=== PATIENT | male | born 1975 | race African-American/Black ===

== ENCOUNTER 2020-12-03 13:31 | Inpatient (IN) | payer BC ==
[~2020-12-03] VITALS: Ht 188 cm; Wt 145.1 kg
[2020-12-03] MEDS ORDERED: ONDANSETRON HCL INJ 2MG/ML 2ML 2 MG/ML VIAL IV ONE (13:55)
[2020-12-03] MEDS ORDERED: FENTANYL CITRATE/PF 100MCG/2 ML INJ IV ONE ×2 (14:00→15:30)
[2020-12-03 14:05] LABS: BASOPHILS % 0.2 % (0.0-1.0); EOSINOPHILS # (AUTO) 0.1 (0.0-0.4); EOSINOPHILS % 0.9 % (0.0-6.0); HEMATOCRIT 32.7 % (38.2-49.6); HEMOGLOBIN 10.5 g/dL (14.0-18.0); LYMPHOCYTES # (AUTO) 1.4 (1.0-3.2); LYMPHOCYTES % 9.5 % (18.0-39.1); MEAN CORPUSCULAR HEMOGLOBIN 30.8 pg (28-32); MEAN CORPUSCULAR HGB CONC 32.1 g/dL (31-35); MEAN CORPUSCULAR VOLUME 95.9 fL (81-99); MONOCYTES # (AUTO) 0.5 (0.2-0.8); MONOCYTES % 3.1 % (4.4-11.3); NEUTROPHILS % 85.4 % (38.7-80.0); PLATELET COUNT 380 x10e3/uL (140-360); RED BLOOD COUNT 3.41 x10e6/uL (4.3-5.7); RED CELL DISTRIBUTION WIDTH 19.9 % (11.7-14.4)
[2020-12-03] MEDS ORDERED: FENTANYL CITRATE/PF 100MCG/2 ML INJ ONE (14:05)
[2020-12-03] MEDS ORDERED: ONDANSETRON HCL INJ 2MG/ML 2ML 2 MG/ML VIAL ONE (14:05)
[2020-12-03 15:57] LABS: ALBUMIN 3.7 g/dL (3.5-5.0); ANION GAP 29.3 mmol/L (8-16); CALCIUM 9.7 mg/dL (8.4-10.2); CREATININE, SERUM 31.18 mg/dL (0.72-1.25); POTASSIUM 4.3 mmol/L (3.5-5.1)
[2020-12-03] MEDS ORDERED: VANCOMYCIN 1GM/NS 250 ML 250 ML IV ONE (17:30)
[2020-12-03] MEDS ORDERED: PIPERACILLIN/TAZO 2.25 GM 50 ML IV ONE (17:30)
[2020-12-03] MEDS ORDERED: PIPERACILLIN/TAZOBACTAM 2.25 GM in SODIUM CHLORIDE 0.9% 50ML 50 ML IV ONE (17:45)
[2020-12-03] MEDS ORDERED: MORPHINE SULFATE INJ 4 MG/ML INJ 1ML IV PRN (17:45)
[2020-12-03] MEDS ORDERED: PIPERACILLIN/TAZOBAC 2.25 GM/SOD CHL 50 ML BAG IV SCH (17:45)
[2020-12-03] MEDS ORDERED: SODIUM CHLORIDE 0.9% 1000ML 1,000 ML IV ONE (17:45)
[2020-12-03] MEDS ORDERED: GENTAMICIN 120MG/NS 100ML 100 ML IV ONE (18:00)
[2020-12-03 18:05] LABS: CREATINE KINASE MB 3.3 ng/mL (0-5.0)
[2020-12-03] MEDS ORDERED: SODIUM CHLORIDE 0.9% 50ML 50 ML ONE (18:28)
[2020-12-03] MEDS ORDERED: IOPAMIDOL 370 MG/ML 200 ML INFUS..BTL INJ ONE (18:28)
[2020-12-03] MEDS ORDERED: SODIUM CHLORIDE 0.9% 500ML 500 ML IV ONE (18:45)
[2020-12-03 20:44] LABS: CLARITY,URINE TURBID (CLEAR); COLOR,URINE YELLOW (YELLOW); LEUKOCYTE ESTERASE ,URINE MODERATE (NEGATIVE); NITRITE,URINE NEGATIVE (NEGATIVE); PROTEIN,URINE DIPSTICK >=300 (NEGATIVE)
[2020-12-03 20:45] LABS: KETONES,URINE NEGATIVE (NEGATIVE); URINE UROBILINOGEN 0.2 mg/dL (0.2 - 1)
[2020-12-03] MEDS: HYDROMORPHONE 1MG/1ML INJ IV PRN (20:45)
[2020-12-03 20:50] LABS: WBC,URINE (MAN) >50 /HPF (0-5)
[2020-12-03 20:51] LABS: BACTERIA,URINE FEW /HPF
[2020-12-03] MEDS ORDERED: GENTAMICIN 120MG/NS 100ML 100 ML ONE (21:12)
[2020-12-03 21:30] VITALS: BP 139/61
[2020-12-03] MEDS ORDERED: HEPARIN SOD (PORCINE) 1000 UNIT/ML SDV ONE (21:44)
[2020-12-03] MEDS ORDERED: ACETAMINOPHEN 325 MG TAB PO ONE (22:00)
[2020-12-03 22:45] VITALS: BP 147/61
[2020-12-03] MEDS ORDERED: [UNRECOGNIZED DRUG - OTHER] PO (23:15)
[2020-12-03] MEDS ORDERED: PHOSPHORUS PO (23:15)
[2020-12-03] MEDS ORDERED: STOOL SOFTENER50 MG PO (23:15)
[2020-12-03] MEDS ORDERED: FUROSEMIDE40 MG/4 ML PO (23:15)
[2020-12-03] MEDS ORDERED: PRILOSEC OTC20 MG PO (23:15)
[2020-12-04] MEDS ORDERED: IBUPROFEN 600 MG TAB PO STA (00:04)
[2020-12-04] MEDS: HYDROMORPHONE 1MG/1ML INJ IV PRN ×4 (00:08→20:17)
[2020-12-04 00:30] VITALS: BP 159/69
[2020-12-04 01:05] LABS: % IRON SATURATION 2 % (15-50); IRON 6 ug/dL (65-175); TOTAL IRON BINDING CAPACITY 294 ug/dL (261-478); TRANSFERRIN 210 mg/dL (174-364)
[2020-12-04 01:12] LABS: CREATINE KINASE MB 1.9 ng/mL (0-5.0)
[2020-12-04 04:30] VITALS: BP 168/65
[2020-12-04 04:44] LABS: BASOPHILS % 0.2 % (0.0-1.0); EOSINOPHILS % 0.2 % (0.0-6.0); HEMOGLOBIN 9.7 g/dL (14.0-18.0); LYMPHOCYTES # (AUTO) 0.6 (1.0-3.2); LYMPHOCYTES % 3.2 % (18.0-39.1); MEAN CORPUSCULAR HEMOGLOBIN 30.5 pg (28-32); MEAN CORPUSCULAR HGB CONC 32.3 g/dL (31-35); MEAN CORPUSCULAR VOLUME 94.3 fL (81-99); MONOCYTES # (AUTO) 0.5 (0.2-0.8); MONOCYTES % 2.5 % (4.4-11.3); NEUTROPHILS # (AUTO) 18.5 (2.1-6.9); NEUTROPHILS % 92.5 % (38.7-80.0); PLATELET COUNT 294 x10e3/uL (140-360); RED BLOOD COUNT 3.18 x10e6/uL (4.3-5.7)
[2020-12-04 05:07] LABS: ALBUMIN 2.9 g/dL (3.5-5.0); ALBUMIN/GLOBULIN RATIO 0.9 (0.8-2.0); ANION GAP 26.8 mmol/L (8-16); CALCIUM 9.1 mg/dL (8.4-10.2); CREATININE, SERUM 30.71 mg/dL (0.72-1.25)
[2020-12-04] MEDS: PIPERACILLIN/TAZOBACTAM 2.25 GM in SODIUM CHLORIDE 0.9% 50ML 50 ML IV SCH ×2 (05:18→20:00)
[2020-12-04 05:28] LABS: POTASSIUM 5.8 mmol/L (3.5-5.1)
[2020-12-04 06:32] LABS: CREATINE KINASE MB 1.5 ng/mL (0-5.0)
[2020-12-04] MEDS ORDERED: LIDOCAINE HCL 1% LOCAL INJ 20 ML VIAL ONE (11:21)
[2020-12-04] MEDS ORDERED: HEPARIN SOD (PORCINE) 1000 UNIT/ML SDV ONE (11:37)
[2020-12-04] MEDS ORDERED: SODIUM CHLORIDE 0.9% 1000ML 1,000 ML IV ONE ×2 (13:45→14:45)
[2020-12-04] MEDS ORDERED: HEPARIN SOD (PORCINE) 5,000 UNIT/ML VIAL IV NR (13:45)
[2020-12-04] MEDS ORDERED: MANNITOL 25% 12.5GM/50 ML VIAL IV NR ×2 (14:00→15:00)
[2020-12-04] MEDS: ONDANSETRON HCL INJ 2MG/ML 2ML 2 MG/ML VIAL IV PRN ×2 (14:15→20:18)
[2020-12-04] MEDS ORDERED: GENTAMICIN 120MG/NS 100ML 100 ML IV ONE (14:45)
[2020-12-04 16:45] LABS: BODY FLUID TYPE PERITONEAL
[2020-12-04 16:46] LABS: BODY FLUID APPEARANCE TURBID; BODY FLUID COLOR YELLOW; WBC,BODY FLUID 82556 cells/uL
[2020-12-04 16:47] LABS: RBC,BODY FLUID 7500 cells/uL
[2020-12-04 18:07] VITALS: BP 139/90
[2020-12-04 18:30] LABS: LYMPHOCYTES,BODY FLUID 2 %; MONO/MACROPHG,BODY FLUID 1 %; NEUTROPHILS,BODY FLUID 97 %
[2020-12-04 19:58] VITALS: BP 135/88
[2020-12-04] MEDS ORDERED: SODIUM CHLORIDE 0.9% 50ML 50 ML ONE (20:38)
[2020-12-04 21:00] VITALS: BP 135/88
[2020-12-04 23:41] VITALS: BP 137/75
[2020-12-05] VITALS (8 sets, daily range): BP systolic 107–171; BP diastolic 66–100
[2020-12-05] MEDS: ACETAMINOPHEN 325 MG TAB PO PRN ×3 (00:13→20:09)
[2020-12-05] MEDS: HYDROMORPHONE 1MG/1ML INJ IV PRN ×4 (01:14→23:00)
[2020-12-05] MEDS: ONDANSETRON HCL INJ 2MG/ML 2ML 2 MG/ML VIAL IV PRN ×2 (01:14→23:00)
[2020-12-05] MEDS ORDERED: LORAZEPAM 0.5 MG TAB PO PRN (01:45)
[2020-12-05] MEDS: PIPERACILLIN/TAZOBACTAM 2.25 GM in SODIUM CHLORIDE 0.9% 50ML 50 ML IV SCH (05:00)
[2020-12-05 05:38] LABS: BASOPHILS % 0.2 % (0.0-1.0); EOSINOPHILS # (AUTO) 0.3 (0.0-0.4); EOSINOPHILS % 1.5 % (0.0-6.0); HEMATOCRIT 28.5 % (38.2-49.6); LYMPHOCYTES # (AUTO) 0.8 (1.0-3.2); LYMPHOCYTES % 4.2 % (18.0-39.1); MEAN CORPUSCULAR HEMOGLOBIN 30.2 pg (28-32); MEAN CORPUSCULAR HGB CONC 31.6 g/dL (31-35); MEAN CORPUSCULAR VOLUME 95.6 fL (81-99); MONOCYTES # (AUTO) 0.4 (0.2-0.8); MONOCYTES % 2.3 % (4.4-11.3); NEUTROPHILS # (AUTO) 16.8 (2.1-6.9); NEUTROPHILS % 90.9 % (38.7-80.0); PLATELET COUNT 237 x10e3/uL (140-360); RED BLOOD COUNT 2.98 x10e6/uL (4.3-5.7); RED CELL DISTRIBUTION WIDTH 19.9 % (11.7-14.4)
[2020-12-05 06:03] LABS: ALBUMIN 2.5 g/dL (3.5-5.0); ALBUMIN/GLOBULIN RATIO 0.7 (0.8-2.0); ANION GAP 24.2 mmol/L (8-16); CALCIUM 9.2 mg/dL (8.4-10.2); CREATININE, SERUM 25.03 mg/dL (0.72-1.25); POTASSIUM 5.2 mmol/L (3.5-5.1)
[2020-12-05] MEDS: PANTOPRAZOLE SOD 40 MG TABEC PO SCH ×2 (08:35→16:38)
[2020-12-05] MEDS: AMLODIPINE BESYLATE 10 MG TAB PO SCH (08:37)
[2020-12-05] MEDS ORDERED: SODIUM CHLORIDE 0.9% 1000ML 2,000 ML ONE (09:31)
[2020-12-05] MEDS ORDERED: IRON SUCROSE 100 MG in SODIUM CHLORIDE 0.9% 100 ML 100 ML IV SCH (10:00)
[2020-12-05] MEDS ORDERED: VANCOMYCIN 1GM/NS 250 ML 250 ML IV ONE (11:30)
[2020-12-05] MEDS ORDERED: VANCOMYCIN 1GM/NS 250 ML 250 ML IV SCH (15:00)
[2020-12-05] MEDS: HYDRALAZINE HCL 25 MG TAB PO SCH ×2 (16:37→20:08)
[2020-12-06] VITALS (7 sets, daily range): BP systolic 96–167; BP diastolic 55–103
[2020-12-06 05:10] LABS: BASOPHILS # (AUTO) 0.1 (0.0-0.1); BASOPHILS % 0.3 % (0.0-1.0); EOSINOPHILS # (AUTO) 0.3 (0.0-0.4); EOSINOPHILS % 1.6 % (0.0-6.0); HEMATOCRIT 30.8 % (38.2-49.6); HEMOGLOBIN 9.7 g/dL (14.0-18.0); LYMPHOCYTES # (AUTO) 0.8 (1.0-3.2); LYMPHOCYTES % 3.9 % (18.0-39.1); MEAN CORPUSCULAR HEMOGLOBIN 29.8 pg (28-32); MEAN CORPUSCULAR HGB CONC 31.5 g/dL (31-35); MEAN CORPUSCULAR VOLUME 94.5 fL (81-99); MONOCYTES # (AUTO) 0.6 (0.2-0.8); MONOCYTES % 2.9 % (4.4-11.3); NEUTROPHILS # (AUTO) 17.2 (2.1-6.9); NEUTROPHILS % 90.1 % (38.7-80.0); PLATELET COUNT 240 x10e3/uL (140-360); RED BLOOD COUNT 3.26 x10e6/uL (4.3-5.7); RED CELL DISTRIBUTION WIDTH 19.2 % (11.7-14.4)
[2020-12-06 05:44] LABS: ALBUMIN 2.4 g/dL (3.5-5.0); ALBUMIN/GLOBULIN RATIO 0.5 (0.8-2.0); ANION GAP 21.7 mmol/L (8-16); CALCIUM 10.1 mg/dL (8.4-10.2); CREATININE, SERUM 19.03 mg/dL (0.72-1.25); POTASSIUM 4.7 mmol/L (3.5-5.1)
[2020-12-06] MEDS: PANTOPRAZOLE SOD 40 MG TABEC PO SCH ×2 (08:00→16:33)
[2020-12-06] MEDS ORDERED: SUCRALFATE 1 GM TAB PO SCH (09:00)
[2020-12-06] MEDS: HYDRALAZINE HCL 25 MG TAB PO SCH ×3 (09:00→20:15)
[2020-12-06] MEDS: AMLODIPINE BESYLATE 10 MG TAB PO SCH (09:00)
[2020-12-06] MEDS: SUCRALFATE 1 GM/10 ML SUSP PO SCH ×2 (09:40→17:00)
[2020-12-06] MEDS: HYDROMORPHONE 1MG/1ML INJ IV PRN ×2 (10:20→23:14)
[2020-12-06] MEDS: ONDANSETRON HCL INJ 2MG/ML 2ML 2 MG/ML VIAL IV PRN ×2 (10:20→23:15)
[2020-12-06] MEDS: CEFAZOLIN SOD 1 GM/NS 50ML 50 ML IV SCH (15:30)
[2020-12-07] VITALS (9 sets, daily range): BP systolic 104–128; BP diastolic 56–91
[2020-12-07] MEDS ORDERED: BISACODYL 5 MG TAB EC PO ONE ×2 (01:15→22:50)
[2020-12-07 06:03] LABS: BASOPHILS # (AUTO) 0.1 (0.0-0.1); BASOPHILS % 0.4 % (0.0-1.0); EOSINOPHILS # (AUTO) 0.6 (0.0-0.4); EOSINOPHILS % 4.4 % (0.0-6.0); HEMATOCRIT 27.8 % (38.2-49.6); HEMOGLOBIN 8.8 g/dL (14.0-18.0); LYMPHOCYTES % 7.1 % (18.0-39.1); MEAN CORPUSCULAR HEMOGLOBIN 30.3 pg (28-32); MEAN CORPUSCULAR HGB CONC 31.7 g/dL (31-35); MEAN CORPUSCULAR VOLUME 95.9 fL (81-99); MONOCYTES # (AUTO) 0.9 (0.2-0.8); MONOCYTES % 6.2 % (4.4-11.3); NEUTROPHILS # (AUTO) 11.4 (2.1-6.9); PLATELET COUNT 228 x10e3/uL (140-360)
[2020-12-07 06:23] LABS: ALBUMIN 2.4 g/dL (3.5-5.0); ALBUMIN/GLOBULIN RATIO 0.5 (0.8-2.0); ANION GAP 18.4 mmol/L (8-16); CALCIUM 9.7 mg/dL (8.4-10.2); CREATININE, SERUM 13.6 mg/dL (0.72-1.25); POTASSIUM 4.4 mmol/L (3.5-5.1)
[2020-12-07] MEDS: PANTOPRAZOLE SOD 40 MG TABEC PO SCH ×2 (07:30→16:33)
[2020-12-07] MEDS ORDERED: SODIUM CHLORIDE 0.9% 1000ML 2,000 ML ONE (08:53)
[2020-12-07] MEDS: AMLODIPINE BESYLATE 10 MG TAB PO SCH (09:00)
[2020-12-07] MEDS: SUCRALFATE 1 GM/10 ML SUSP PO SCH ×2 (09:00→17:17)
[2020-12-07] MEDS: HYDRALAZINE HCL 25 MG TAB PO SCH ×3 (09:00→21:00)
[2020-12-07] MEDS: HYDROMORPHONE 1MG/1ML INJ IV PRN (09:00)
[2020-12-07] MEDS ORDERED: HEPARIN SOD (PORCINE) 1000 UNIT/ML SDV IV PRN (14:15)
[2020-12-07] MEDS ORDERED: SODIUM CHLORIDE 0.9% 1000ML 2,000 ML IV PRN (14:15)
[2020-12-07] MEDS: ONDANSETRON HCL INJ 2MG/ML 2ML 2 MG/ML VIAL IV PRN (19:38)
[2020-12-07] MEDS: BISACODYL 5 MG TAB EC PO PRN (19:40)
[2020-12-07] MEDS: ACETAMINOPHEN 325 MG TAB PO PRN (19:40)
[2020-12-07] MEDS ORDERED: BISACODYL 5 MG TAB EC PO STA (21:46)
[2020-12-08] VITALS (18 sets, daily range): BP systolic 85–114; BP diastolic 47–92
[2020-12-08] MEDS: ONDANSETRON HCL INJ 2MG/ML 2ML 2 MG/ML VIAL IV PRN ×3 (00:14→12:38)
[2020-12-08] MEDS: ACETAMINOPHEN 325 MG TAB PO PRN (04:54)
[2020-12-08] MEDS: PANTOPRAZOLE SOD 40 MG TABEC PO SCH (07:30)
[2020-12-08] MEDS: SUCRALFATE 1 GM/10 ML SUSP PO SCH ×2 (09:00→16:35)
[2020-12-08] MEDS: AMLODIPINE BESYLATE 10 MG TAB PO SCH (09:00)
[2020-12-08] MEDS: HYDRALAZINE HCL 25 MG TAB PO SCH ×3 (09:00→21:00)
[2020-12-08] MEDS: SODIUM CHLORIDE 0.9% 250ML IRRIG IR SCH ×4 (09:15→21:37)
[2020-12-08] MEDS ORDERED: SODIUM CHLORIDE 0.9% 500ML 500 ML IV ONE (11:00)
[2020-12-08] MEDS ORDERED: HYDROMORPHONE 1MG/1ML INJ IV PRN (11:15)
[2020-12-08 11:51] LABS: BASOPHILS % 0.6 % (0.0-1.0); EOSINOPHILS # (AUTO) 0.2 (0.0-0.4); EOSINOPHILS % 3.6 % (0.0-6.0); HEMOGLOBIN 10.4 g/dL (14.0-18.0); LYMPHOCYTES # (AUTO) 0.8 (1.0-3.2); MEAN CORPUSCULAR HEMOGLOBIN 29.6 pg (28-32); MEAN CORPUSCULAR HGB CONC 31.5 g/dL (31-35); MONOCYTES # (AUTO) 0.8 (0.2-0.8); NEUTROPHILS # (AUTO) 4.7 (2.1-6.9); NEUTROPHILS % 70.7 % (38.7-80.0); PLATELET COUNT 261 x10e3/uL (140-360); RED BLOOD COUNT 3.51 x10e6/uL (4.3-5.7); RED CELL DISTRIBUTION WIDTH 19.2 % (11.7-14.4)
[2020-12-08 12:19] LABS: ALBUMIN 2.7 g/dL (3.5-5.0); ALBUMIN/GLOBULIN RATIO 0.5 (0.8-2.0); ANION GAP 25.5 mmol/L (8-16); CALCIUM 10.4 mg/dL (8.4-10.2); CREATININE, SERUM 12.53 mg/dL (0.72-1.25); POTASSIUM 4.5 mmol/L (3.5-5.1)
[2020-12-08 12:28] LABS: AMYLASE 238 U/L (25-125); LIPASE 766 U/L (8-78)
[2020-12-08] MEDS: PANTOPRAZOLE 40 MG 10ML VIAL IV SCH (16:47)
[2020-12-09] VITALS (24 sets, daily range): BP systolic 80–112; BP diastolic 38–84
[2020-12-09] MEDS: SODIUM CHLORIDE 0.9% 250ML IRRIG IR SCH ×6 (01:15→21:15)
[2020-12-09] MEDS: ONDANSETRON HCL INJ 2MG/ML 2ML 2 MG/ML VIAL IV PRN ×2 (01:27→20:33)
[2020-12-09 05:38] LABS: BASOPHILS % 0.4 % (0.0-1.0); EOSINOPHILS # (AUTO) 0.2 (0.0-0.4); HEMATOCRIT 32.2 % (38.2-49.6); HEMOGLOBIN 10.1 g/dL (14.0-18.0); LYMPHOCYTES # (AUTO) 1.1 (1.0-3.2); LYMPHOCYTES % 11.5 % (18.0-39.1); MEAN CORPUSCULAR HEMOGLOBIN 29.7 pg (28-32); MEAN CORPUSCULAR HGB CONC 31.4 g/dL (31-35); MEAN CORPUSCULAR VOLUME 94.7 fL (81-99); MONOCYTES # (AUTO) 0.8 (0.2-0.8); MONOCYTES % 8.5 % (4.4-11.3); NEUTROPHILS # (AUTO) 7.2 (2.1-6.9); NEUTROPHILS % 75.9 % (38.7-80.0); PLATELET COUNT 299 x10e3/uL (140-360); RED CELL DISTRIBUTION WIDTH 19.6 % (11.7-14.4)
[2020-12-09 05:56] LABS: ALBUMIN 2.6 g/dL (3.5-5.0); ALBUMIN/GLOBULIN RATIO 0.4 (0.8-2.0); ANION GAP 29.7 mmol/L (8-16); CREATININE, SERUM 15.48 mg/dL (0.72-1.25); POTASSIUM 5.7 mmol/L (3.5-5.1)
[2020-12-09 08:35] LABS: BAND NEUTROPHILS % (MANUAL) 12 %; EOSINOPHILS % (MANUAL) 4 % (0-7); LYMPHOCYTES % (MANUAL) 15 % (19-48); MONOCYTES % (MANUAL) 14 % (3.4-9.0); NEUTROPHILS % (MANUAL) 55 % (40-74)
[2020-12-09 08:36] LABS: PLATELET ESTIMATE ADEQUATE
[2020-12-09 08:37] LABS: ANISOCYTOSIS MODERATE; POLYCHROMASIA FEW
[2020-12-09 08:38] LABS: MICROCYTOSIS SLIGHT
[2020-12-09 08:39] LABS: LARGE PLATELETS FEW; PLATELET MORPHOLOGY COMMENT RARE EDTA CLUMPING; RBC MORPHOLOGY COMMENT ABNORMAL
[2020-12-09] MEDS: SUCRALFATE 1 GM/10 ML SUSP PO SCH ×2 (08:41→16:54)
[2020-12-09] MEDS: AMLODIPINE BESYLATE 10 MG TAB PO SCH (08:41)
[2020-12-09] MEDS: HYDRALAZINE HCL 25 MG TAB PO SCH ×3 (08:41→21:00)
[2020-12-09] MEDS: PANTOPRAZOLE 40 MG 10ML VIAL IV SCH ×2 (08:41→16:54)
[2020-12-09] MEDS ORDERED: SODIUM CHLORIDE 0.9% 500ML 500 ML ONE ×2 (13:06→14:07)
[2020-12-09] MEDS: CEFAZOLIN SOD 1 GM/NS 50ML 50 ML IV SCH (13:15)
[2020-12-09] MEDS ORDERED: BUPIVACAINE 0.25% 30ML SDV ONE (14:17)
[2020-12-09] MEDS ORDERED: SODIUM CHLORIDE 0.9% 250ML IRRIG IR SCH (14:30)
[2020-12-09] MEDS ORDERED: HYDROMORPHONE 1MG/1ML INJ IV PRN (14:30)
[2020-12-09] MEDS ORDERED: PANTOPRAZOLE 40 MG 10ML VIAL IV SCH (15:00)
[2020-12-09] MEDS ORDERED: ALBUMIN 5% 0.05 GM/ML BTL IV STA (15:41)
[2020-12-09] MEDS: PIPERACILLIN/TAZOBAC 3.375 GM in SODIUM CHLORIDE 0.9% 50ML 50 ML IV SCH ×2 (15:49→20:33)
[2020-12-09] MEDS ORDERED: FENTANYL CITRATE/PF 100MCG/2 ML INJ ONE (16:27)
[2020-12-09] MEDS ORDERED: MIDAZOLAM HCL 2 MG/2 ML VIAL ONE (16:27)
[2020-12-09] MEDS ORDERED: ALBUMIN 5% 250ML 500 ML IV ONE (16:30)
[2020-12-09] MEDS ORDERED: SEVOFLURANE INHAL SOLN 250 ML PEN BTL ONE (17:44)
[2020-12-09] MEDS ORDERED: ROCURONIUM BROMIDE 10 MG/ML 5ML VIAL IV ONE (17:44)
[2020-12-09] MEDS ORDERED: PHENYLEPHRINE HCL 1% 10 MG/ML VIAL ONE (17:44)
[2020-12-09] MEDS ORDERED: SUCCINYLCHOLINE CHLORIDE 20 MG/ML 10ML VIAL ONE (17:44)
[2020-12-09] MEDS ORDERED: ETOMIDATE 2 MG/ML 10 ML INJ IV ONE (17:44)
[2020-12-09] MEDS ORDERED: POVIDONE IODINE 0.05% 0.05 % ML PO ONE (17:44)
[2020-12-10] VITALS (26 sets, daily range): BP systolic 99–153; BP diastolic 51–89
[2020-12-10] MEDS: SODIUM CHLORIDE 0.9% 250ML IRRIG IR SCH ×6 (01:15→21:15)
[2020-12-10] MEDS: ONDANSETRON HCL INJ 2MG/ML 2ML 2 MG/ML VIAL IV PRN ×2 (02:48→10:14)
[2020-12-10] MEDS: PIPERACILLIN/TAZOBAC 3.375 GM in SODIUM CHLORIDE 0.9% 50ML 50 ML IV SCH ×2 (02:48→08:55)
[2020-12-10 06:22] LABS: BASOPHILS % 0.3 % (0.0-1.0); EOSINOPHILS # (AUTO) 0.4 (0.0-0.4); EOSINOPHILS % 4.2 % (0.0-6.0); HEMATOCRIT 26.7 % (38.2-49.6); HEMOGLOBIN 8.3 g/dL (14.0-18.0); LYMPHOCYTES # (AUTO) 1.4 (1.0-3.2); LYMPHOCYTES % 14.4 % (18.0-39.1); MEAN CORPUSCULAR HEMOGLOBIN 29.6 pg (28-32); MEAN CORPUSCULAR HGB CONC 31.1 g/dL (31-35); MEAN CORPUSCULAR VOLUME 95.4 fL (81-99); MONOCYTES # (AUTO) 0.9 (0.2-0.8); MONOCYTES % 9.4 % (4.4-11.3); NEUTROPHILS # (AUTO) 6.9 (2.1-6.9); PLATELET COUNT 315 x10e3/uL (140-360); RED CELL DISTRIBUTION WIDTH 19.1 % (11.7-14.4)
[2020-12-10 06:42] LABS: ALBUMIN 2.6 g/dL (3.5-5.0); ALBUMIN/GLOBULIN RATIO 0.6 (0.8-2.0); ANION GAP 26.8 mmol/L (8-16); CREATININE, SERUM 13.53 mg/dL (0.72-1.25); POTASSIUM 4.8 mmol/L (3.5-5.1)
[2020-12-10] MEDS: SUCRALFATE 1 GM/10 ML SUSP PO SCH ×2 (08:55→17:00)
[2020-12-10] MEDS: AMLODIPINE BESYLATE 10 MG TAB PO SCH (08:55)
[2020-12-10] MEDS: HYDRALAZINE HCL 25 MG TAB PO SCH ×3 (08:55→21:00)
[2020-12-10] MEDS: PANTOPRAZOLE 40 MG 10ML VIAL IV SCH ×2 (08:55→17:20)
[2020-12-10] MEDS ORDERED: CHLORASEPTIC SPRAY 177 ML BTL MM PRN (09:45)
[2020-12-10] MEDS: DEXTROSE 5%/0.45% SOD CHL 1,000 ML IV SCH (10:10)
[2020-12-10] MEDS: CEFAZOLIN SOD 1 GM/NS 50ML 50 ML IV SCH (14:23)
[2020-12-10] MEDS ORDERED: CEFAZOLIN SOD 1 GM/NS 50ML 50 ML IV ONE (14:34)
[2020-12-11] VITALS (24 sets, daily range): BP systolic 107–169; BP diastolic 55–94
[2020-12-11] MEDS: SODIUM CHLORIDE 0.9% 250ML IRRIG IR SCH ×6 (01:15→20:29)
[2020-12-11] MEDS: DEXTROSE 5%/0.45% SOD CHL 1,000 ML IV SCH ×2 (05:49→22:04)
[2020-12-11 06:52] LABS: BASOPHILS # (AUTO) 0.1 (0.0-0.1); BASOPHILS % 0.4 % (0.0-1.0); EOSINOPHILS % 6.8 % (0.0-6.0); HEMATOCRIT 28.3 % (38.2-49.6); HEMOGLOBIN 8.8 g/dL (14.0-18.0); LYMPHOCYTES # (AUTO) 1.7 (1.0-3.2); LYMPHOCYTES % 12.1 % (18.0-39.1); MEAN CORPUSCULAR HEMOGLOBIN 29.3 pg (28-32); MEAN CORPUSCULAR HGB CONC 31.1 g/dL (31-35); MEAN CORPUSCULAR VOLUME 94.3 fL (81-99); MONOCYTES # (AUTO) 0.8 (0.2-0.8); MONOCYTES % 5.9 % (4.4-11.3); NEUTROPHILS # (AUTO) 10.3 (2.1-6.9); NEUTROPHILS % 71.8 % (38.7-80.0); PLATELET COUNT 409 x10e3/uL (140-360); RED CELL DISTRIBUTION WIDTH 19.2 % (11.7-14.4)
[2020-12-11 07:13] LABS: ALBUMIN 2.6 g/dL (3.5-5.0); ALBUMIN/GLOBULIN RATIO 0.5 (0.8-2.0); ANION GAP 28.7 mmol/L (8-16); CALCIUM 10.4 mg/dL (8.4-10.2); CREATININE, SERUM 16.88 mg/dL (0.72-1.25); POTASSIUM 4.7 mmol/L (3.5-5.1)
[2020-12-11] MEDS: PANTOPRAZOLE 40 MG 10ML VIAL IV SCH ×2 (08:53→17:07)
[2020-12-11] MEDS: AMLODIPINE BESYLATE 10 MG TAB PO SCH (08:53)
[2020-12-11] MEDS: HYDRALAZINE HCL 25 MG TAB PO SCH ×3 (08:53→20:29)
[2020-12-11] MEDS: SUCRALFATE 1 GM/10 ML SUSP PO SCH ×2 (08:53→17:00)
[2020-12-11] MEDS: ONDANSETRON HCL INJ 2MG/ML 2ML 2 MG/ML VIAL IV PRN (09:39)
[2020-12-11] MEDS ORDERED: HEPARIN SOD (PORCINE) 1000 UNIT/ML SDV IV PRN (12:45)
[2020-12-11] MEDS: METOCLOPRAMIDE HCL 10 MG/2ML VIAL IV SCH (13:19)
[2020-12-11] MEDS: CEFAZOLIN SOD 1 GM/NS 50ML 50 ML IV SCH (14:12)
[2020-12-11] MEDS: METRONIDAZOLE 250MG/NS 50ML 50 ML IV SCH ×2 (15:19→23:00)
[2020-12-12] VITALS (18 sets, daily range): BP systolic 86–159; BP diastolic 54–77
[2020-12-12] MEDS: SODIUM CHLORIDE 0.9% 250ML IRRIG IR SCH ×6 (01:15→21:02)
[2020-12-12 05:48] LABS: BASOPHILS # (AUTO) 0.1 (0.0-0.1); BASOPHILS % 0.4 % (0.0-1.0); EOSINOPHILS # (AUTO) 0.9 (0.0-0.4); HEMATOCRIT 28.7 % (38.2-49.6); HEMOGLOBIN 8.9 g/dL (14.0-18.0); LYMPHOCYTES # (AUTO) 1.8 (1.0-3.2); LYMPHOCYTES % 11.7 % (18.0-39.1); MEAN CORPUSCULAR HEMOGLOBIN 29.4 pg (28-32); MEAN CORPUSCULAR VOLUME 94.7 fL (81-99); MONOCYTES % 6.6 % (4.4-11.3); NEUTROPHILS # (AUTO) 10.9 (2.1-6.9); PLATELET COUNT 404 x10e3/uL (140-360); RED BLOOD COUNT 3.03 x10e6/uL (4.3-5.7); RED CELL DISTRIBUTION WIDTH 19.1 % (11.7-14.4)
[2020-12-12 06:08] LABS: ALBUMIN 2.6 g/dL (3.5-5.0); ALBUMIN/GLOBULIN RATIO 0.5 (0.8-2.0); ANION GAP 21.1 mmol/L (8-16); CALCIUM 9.7 mg/dL (8.4-10.2); CREATININE, SERUM 12.37 mg/dL (0.72-1.25); POTASSIUM 4.1 mmol/L (3.5-5.1)
[2020-12-12] MEDS: METRONIDAZOLE 250MG/NS 50ML 50 ML IV SCH ×3 (06:10→23:59)
[2020-12-12] MEDS: METOCLOPRAMIDE HCL 10 MG/2ML VIAL IV SCH ×5 (06:10→23:59)
[2020-12-12] MEDS: AMLODIPINE BESYLATE 10 MG TAB PO SCH (08:35)
[2020-12-12] MEDS: SUCRALFATE 1 GM/10 ML SUSP PO SCH ×2 (08:35→16:14)
[2020-12-12] MEDS: HYDRALAZINE HCL 25 MG TAB PO SCH ×3 (08:35→20:59)
[2020-12-12] MEDS: PANTOPRAZOLE 40 MG 10ML VIAL IV SCH ×2 (08:35→16:14)
[2020-12-12] MEDS ORDERED: SODIUM CHLORIDE 0.9% 250ML 500 ML IV PRN (11:00)
[2020-12-12] MEDS ORDERED: ALBUMIN 25% 12.5GM 0.25 GM/ML BTL IV PRN (11:00)
[2020-12-12] MEDS: DEXTROSE 5%/0.45% SOD CHL 1,000 ML IV SCH (11:34)
[2020-12-12] MEDS: CEFAZOLIN SOD 1 GM/NS 50ML 50 ML IV SCH (14:11)
[2020-12-12] MEDS: ONDANSETRON HCL INJ 2MG/ML 2ML 2 MG/ML VIAL IV PRN (14:14)
[2020-12-12] MEDS ORDERED: METRONIDAZOLE 500MG/NS 100ML 100 ML IV ONE (21:21)
[2020-12-13] VITALS (7 sets, daily range): BP systolic 95–130; BP diastolic 66–94
[2020-12-13] MEDS: DEXTROSE 5%/0.45% SOD CHL 1,000 ML IV SCH (00:03)
[2020-12-13] MEDS: SODIUM CHLORIDE 0.9% 250ML IRRIG IR SCH (00:03)
[2020-12-13] MEDS: METOCLOPRAMIDE HCL 10 MG/2ML VIAL IV SCH ×3 (04:59→18:29)
[2020-12-13] MEDS: METRONIDAZOLE 250MG/NS 50ML 50 ML IV SCH ×3 (05:08→21:22)
[2020-12-13 05:27] LABS: BASOPHILS # (AUTO) 0.1 (0.0-0.1); BASOPHILS % 0.4 % (0.0-1.0); EOSINOPHILS # (AUTO) 0.8 (0.0-0.4); EOSINOPHILS % 4.9 % (0.0-6.0); HEMATOCRIT 29.1 % (38.2-49.6); HEMOGLOBIN 8.9 g/dL (14.0-18.0); LYMPHOCYTES # (AUTO) 2.1 (1.0-3.2); LYMPHOCYTES % 12.9 % (18.0-39.1); MEAN CORPUSCULAR HEMOGLOBIN 29.1 pg (28-32); MEAN CORPUSCULAR HGB CONC 30.6 g/dL (31-35); MEAN CORPUSCULAR VOLUME 95.1 fL (81-99); MONOCYTES % 6.1 % (4.4-11.3); NEUTROPHILS # (AUTO) 10.5 (2.1-6.9); NEUTROPHILS % 65.9 % (38.7-80.0); PLATELET COUNT 423 x10e3/uL (140-360); RED BLOOD COUNT 3.06 x10e6/uL (4.3-5.7); RED CELL DISTRIBUTION WIDTH 18.8 % (11.7-14.4)
[2020-12-13 05:54] LABS: ALBUMIN 2.6 g/dL (3.5-5.0); ALBUMIN/GLOBULIN RATIO 0.6 (0.8-2.0); ANION GAP 20.1 mmol/L (8-16); CREATININE, SERUM 9.26 mg/dL (0.72-1.25); POTASSIUM 4.1 mmol/L (3.5-5.1)
[2020-12-13] MEDS: AMLODIPINE BESYLATE 10 MG TAB PO SCH (09:00)
[2020-12-13] MEDS: SUCRALFATE 1 GM/10 ML SUSP PO SCH ×2 (09:00→17:00)
[2020-12-13] MEDS: HYDRALAZINE HCL 25 MG TAB PO SCH ×3 (09:00→21:00)
[2020-12-13] MEDS: PANTOPRAZOLE 40 MG 10ML VIAL IV SCH ×2 (09:11→18:29)
[2020-12-13] MEDS ORDERED: IOPAMIDOL 370 MG/ML 200 ML INFUS..BTL INJ ONE (11:45)
[2020-12-13] MEDS ORDERED: SODIUM CHLORIDE 0.9% 50ML 50 ML ONE (11:45)
[2020-12-13] MEDS: CEFAZOLIN SOD 1 GM/NS 50ML 50 ML IV SCH (15:32)
[2020-12-14] VITALS (8 sets, daily range): BP systolic 122–130; BP diastolic 77–94
[2020-12-14] MEDS: METOCLOPRAMIDE HCL 10 MG/2ML VIAL IV SCH ×5 (06:00→23:14)
[2020-12-14 06:44] LABS: BASOPHILS # (AUTO) 0.1 (0.0-0.1); BASOPHILS % 0.6 % (0.0-1.0); EOSINOPHILS # (AUTO) 0.9 (0.0-0.4); EOSINOPHILS % 6.6 % (0.0-6.0); HEMATOCRIT 29.4 % (38.2-49.6); HEMOGLOBIN 9.1 g/dL (14.0-18.0); LYMPHOCYTES # (AUTO) 1.4 (1.0-3.2); LYMPHOCYTES % 10.8 % (18.0-39.1); MEAN CORPUSCULAR HEMOGLOBIN 29.2 pg (28-32); MEAN CORPUSCULAR VOLUME 94.2 fL (81-99); MONOCYTES # (AUTO) 0.9 (0.2-0.8); MONOCYTES % 7.1 % (4.4-11.3); NEUTROPHILS # (AUTO) 7.5 (2.1-6.9); NEUTROPHILS % 58.4 % (38.7-80.0); PLATELET COUNT 444 x10e3/uL (140-360); RED BLOOD COUNT 3.12 x10e6/uL (4.3-5.7); RED CELL DISTRIBUTION WIDTH 18.6 % (11.7-14.4)
[2020-12-14 07:02] LABS: ANION GAP 19.1 mmol/L (8-16); CALCIUM 9.9 mg/dL (8.4-10.2); CREATININE, SERUM 13.04 mg/dL (0.72-1.25); POTASSIUM 4.1 mmol/L (3.5-5.1)
[2020-12-14 07:24] LABS: AMYLASE 616 U/L (25-125)
[2020-12-14 07:43] LABS: LIPASE 3543 U/L (8-78)
[2020-12-14] MEDS: HYDRALAZINE HCL 25 MG TAB PO SCH ×3 (08:33→20:28)
[2020-12-14] MEDS: AMLODIPINE BESYLATE 10 MG TAB PO SCH (08:56)
[2020-12-14] MEDS: SUCRALFATE 1 GM/10 ML SUSP PO SCH ×2 (08:57→16:51)
[2020-12-14] MEDS: PANTOPRAZOLE 40 MG 10ML VIAL IV SCH ×2 (08:57→16:51)
[2020-12-14] MEDS: METRONIDAZOLE 250MG/NS 50ML 50 ML IV SCH ×2 (10:00→15:00)
[2020-12-14] MEDS: HYDROCODONE/APAP 7.5MG-325MG 1 EA TAB PO PRN (13:42)
[2020-12-14] MEDS: CEFAZOLIN SOD 1 GM/NS 50ML 50 ML IV SCH (13:43)
[2020-12-15] VITALS (8 sets, daily range): BP systolic 97–141; BP diastolic 61–92
[2020-12-15] MEDS: HYDROCODONE/APAP 7.5MG-325MG 1 EA TAB PO PRN (02:15)
[2020-12-15] MEDS: METOCLOPRAMIDE HCL 10 MG/2ML VIAL IV SCH ×4 (05:32→23:49)
[2020-12-15 05:42] LABS: AMYLASE 515 U/L (25-125)
[2020-12-15 06:19] LABS: LIPASE 1937 U/L (8-78)
[2020-12-15] MEDS: HYDRALAZINE HCL 25 MG TAB PO SCH ×3 (08:19→20:01)
[2020-12-15] MEDS: SUCRALFATE 1 GM/10 ML SUSP PO SCH ×2 (08:20→17:23)
[2020-12-15] MEDS: PANTOPRAZOLE 40 MG 10ML VIAL IV SCH ×2 (08:20→17:23)
[2020-12-15] MEDS: CEFAZOLIN SOD 1 GM/NS 50ML 50 ML IV SCH (14:00)
[2020-12-16 04:50] VITALS: BP 121/83
[2020-12-16] MEDS: METOCLOPRAMIDE HCL 10 MG/2ML VIAL IV SCH ×4 (05:32→23:42)
[2020-12-16 05:38] LABS: BASOPHILS # (AUTO) 0.1 (0.0-0.1); BASOPHILS % 0.6 % (0.0-1.0); EOSINOPHILS # (AUTO) 0.6 (0.0-0.4); EOSINOPHILS % 4.7 % (0.0-6.0); HEMATOCRIT 26.1 % (38.2-49.6); HEMOGLOBIN 8.3 g/dL (14.0-18.0); LYMPHOCYTES # (AUTO) 1.7 (1.0-3.2); LYMPHOCYTES % 13.9 % (18.0-39.1); MEAN CORPUSCULAR HEMOGLOBIN 29.6 pg (28-32); MEAN CORPUSCULAR HGB CONC 31.8 g/dL (31-35); MEAN CORPUSCULAR VOLUME 93.2 fL (81-99); MONOCYTES # (AUTO) 1.1 (0.2-0.8); MONOCYTES % 8.5 % (4.4-11.3); NEUTROPHILS # (AUTO) 6.9 (2.1-6.9); NEUTROPHILS % 55.1 % (38.7-80.0); PLATELET COUNT 420 x10e3/uL (140-360); RED CELL DISTRIBUTION WIDTH 18.4 % (11.7-14.4)
[2020-12-16 05:59] LABS: ALBUMIN 2.6 g/dL (3.5-5.0); ALBUMIN/GLOBULIN RATIO 0.6 (0.8-2.0); ANION GAP 17.9 mmol/L (8-16); CALCIUM 9.8 mg/dL (8.4-10.2); CREATININE, SERUM 13.91 mg/dL (0.72-1.25); POTASSIUM 3.9 mmol/L (3.5-5.1)
[2020-12-16 07:32] LABS: BAND NEUTROPHILS % (MANUAL) 2 %; EOSINOPHILS % (MANUAL) 1 % (0-7); LYMPHOCYTES % (MANUAL) 15 % (19-48); MONOCYTES % (MANUAL) 12 % (3.4-9.0); MYELOCYTES % (MANUAL) 2 % (0-0); NEUTROPHILS % (MANUAL) 68 % (40-74); NUCLEATED RED BLOOD CELLS 1; PLATELET ESTIMATE SLIGHTLY INCREASED; PLATELET MORPHOLOGY COMMENT FEW LARGE
[2020-12-16 07:36] LABS: ANISOCYTOSIS SLIGHT; RBC MORPHOLOGY COMMENT NORMAL
[2020-12-16 07:37] LABS: GIANT PLATELETS FEW
[2020-12-16] MEDS: HYDRALAZINE HCL 25 MG TAB PO SCH ×3 (08:31→20:56)
[2020-12-16] MEDS: SUCRALFATE 1 GM/10 ML SUSP PO SCH ×2 (08:31→16:14)
[2020-12-16] MEDS: PANTOPRAZOLE 40 MG 10ML VIAL IV SCH ×2 (08:31→16:14)
[2020-12-16 08:34] VITALS: BP 132/81
[2020-12-16 09:17] VITALS: BP 132/81
[2020-12-16 11:21] LABS: INR 1.15; PROTHROMBIN TIME 15.4 seconds (11.9-14.5)
[2020-12-16 11:22] LABS: PARTIAL THROMBOPLASTIN TIME 32.5 seconds (23.8-35.5)
[2020-12-16 12:29] VITALS: BP 133/85
[2020-12-16] MEDS: CEFAZOLIN SOD 1 GM/NS 50ML 50 ML IV SCH (13:40)
[2020-12-16] MEDS ORDERED: LIDOCAINE HCL 1% LOCAL INJ 20 ML VIAL ONE ×2 (14:19→14:28)
[2020-12-16] MEDS ORDERED: HEPARIN SOD (PORCINE) 1000 UNIT/ML SDV ONE (14:28)
[2020-12-16] MEDS ORDERED: MIDAZOLAM HCL 2 MG/2 ML VIAL ONE (14:29)
[2020-12-16] MEDS ORDERED: FENTANYL CITRATE/PF 100MCG/2 ML INJ ONE (14:29)
[2020-12-16 16:58] VITALS: BP 133/81
[2020-12-16 21:10] VITALS: BP 131/82
[2020-12-17] MEDS: ACETAMINOPHEN 325 MG TAB PO PRN (00:15)
[2020-12-17 00:38] VITALS: BP 123/81
[2020-12-17 04:48] VITALS: BP 109/66
[2020-12-17] MEDS: METOCLOPRAMIDE HCL 10 MG/2ML VIAL IV SCH ×2 (04:51→11:34)
[2020-12-17 05:05] LABS: BASOPHILS # (AUTO) 0.1 (0.0-0.1); BASOPHILS % 0.5 % (0.0-1.0); EOSINOPHILS # (AUTO) 0.5 (0.0-0.4); EOSINOPHILS % 3.8 % (0.0-6.0); HEMATOCRIT 27.9 % (38.2-49.6); HEMOGLOBIN 8.8 g/dL (14.0-18.0); LYMPHOCYTES # (AUTO) 1.6 (1.0-3.2); LYMPHOCYTES % 12.5 % (18.0-39.1); MEAN CORPUSCULAR HEMOGLOBIN 29.1 pg (28-32); MEAN CORPUSCULAR HGB CONC 31.5 g/dL (31-35); MEAN CORPUSCULAR VOLUME 92.4 fL (81-99); MONOCYTES # (AUTO) 0.9 (0.2-0.8); MONOCYTES % 7.1 % (4.4-11.3); NEUTROPHILS # (AUTO) 8.5 (2.1-6.9); NEUTROPHILS % 65.4 % (38.7-80.0); PLATELET COUNT 390 x10e3/uL (140-360); RED BLOOD COUNT 3.02 x10e6/uL (4.3-5.7)
[2020-12-17 05:23] LABS: ALBUMIN 2.8 g/dL (3.5-5.0); ALBUMIN/GLOBULIN RATIO 0.6 (0.8-2.0); ALKALINE PHOSPHATASE 61 IU/L (40-150); ANION GAP 19.2 mmol/L (8-16); BLOOD UREA NITROGEN 23 mg/dL (7-26); BUN/CREATININE RATIO 2 (6-25); CALCIUM 9.9 mg/dL (8.4-10.2); CARBON DIOXIDE 23 mmol/L (22-29); CHLORIDE 99 mmol/L (98-107); EST GLOMERULAR FILTRATION RATE 7 ML/MIN (60-); GLUCOSE 108 mg/dL (74-118); POTASSIUM 4.2 mmol/L (3.5-5.1); SODIUM 137 mmol/L (136-145)
[2020-12-17 05:25] LABS: ALANINE AMINOTRANSFERASE < 6 IU/L (0-55)
[2020-12-17 05:55] LABS: LIPASE 1171 U/L (8-78)
[2020-12-17 07:02] LABS: BAND NEUTROPHILS % (MANUAL) 2 %; EOSINOPHILS % (MANUAL) 8 % (0-7); LYMPHOCYTES % (MANUAL) 18 % (19-48); MONOCYTES % (MANUAL) 5 % (3.4-9.0); MYELOCYTES % (MANUAL) 3 % (0-0); NEUTROPHILS % (MANUAL) 64 % (40-74)
[2020-12-17 07:11] LABS: ANISOCYTOSIS SLIGHT; PLATELET ESTIMATE SLIGHTLY INCREASED
[2020-12-17 07:12] LABS: RBC MORPHOLOGY COMMENT NORMAL
[2020-12-17 07:13] LABS: PLATELET MORPHOLOGY COMMENT FEW LARGE
[2020-12-17] MEDS: PANTOPRAZOLE 40 MG 10ML VIAL IV SCH (08:25)
[2020-12-17] MEDS: HYDRALAZINE HCL 25 MG TAB PO SCH (08:27)
[2020-12-17] MEDS: SUCRALFATE 1 GM/10 ML SUSP PO SCH (08:27)
[2020-12-17 08:55] VITALS: BP 113/62
[2020-12-17 08:56] VITALS: BP 113/62
[2020-12-17] MEDS: BISACODYL 5 MG TAB EC PO PRN (09:45)
[2020-12-17] MEDS ORDERED: CARAFATE1 GM PO (12:09)
[2020-12-17] MEDS ORDERED: PROTONIX20 MG PO (12:10)
[2020-12-17] MEDS ORDERED: HYDRALAZINE HCL50 MG PO (12:10)
[2020-12-17] MEDS ORDERED: KEFLEX125 MG/5 M PO (12:11)
[2020-12-17 12:46] VITALS: BP 115/78
[2020-12-17] MEDS: CEFAZOLIN SOD 1 GM/NS 50ML 50 ML IV SCH (13:33)
[2020-12-17] MEDS ORDERED: ONDANSETRON HCL 4 MG ORAL DISINTEGRATING TAB PO PRN (14:30)
[2020-12-17] MEDS ORDERED: METOCLOPRAMIDE HCL 10 MG TAB PO SCH (16:30)
[2020-12-17] MEDS ORDERED: PANTOPRAZOLE SOD 40 MG TABEC PO SCH (16:30)
== END 2020-12-17 15:05 | disposition home or self-care (01) | DRG 907 ==
LOC: ER 15:24 → ERHOLD 17:44 → MED/SURG3 12-04 17:44 → ICU 12-08 08:14 → IMCU 12-12 11:00 → MED/SURG 12-12 16:40
PROVIDERS: ADMIT Family Medicine; ATTEND Family Medicine
PROC: 3E1M39Z Irrigation of Peritoneal Cavity using Dialysate, Percutaneous Approach (ICD-10-PCS; 2020-12-03)
PROC: 02HV33Z Insertion of Infusion Device into Superior Vena Cava, Percutaneous Approach (ICD-10-PCS; 2020-12-04)
PROC: 5A1D70Z Performance of Urinary Filtration, Intermittent, Less than 6 Hours Per Day (ICD-10-PCS; 2020-12-04)
PROC: 0WPG03Z Removal of Infusion Device from Peritoneal Cavity, Open Approach (ICD-10-PCS; 2020-12-09)
PROC: 0JH63XZ Insertion of Tunneled Vascular Access Device into Chest Subcutaneous Tissue and Fascia, Percutaneous Approach (ICD-10-PCS; principal; 2020-12-16)
PROC: 02HV33Z Insertion of Infusion Device into Superior Vena Cava, Percutaneous Approach (ICD-10-PCS; 2020-12-16)
DX: T85.71XA Infection and inflammatory reaction due to peritoneal dialysis catheter, initial encounter (principal); N18.6 End stage renal disease; K85.90 Acute pancreatitis without necrosis or infection, unspecified; R65.20 Severe sepsis without septic shock; A41.01 Sepsis due to Methicillin susceptible Staphylococcus aureus; K65.2 Spontaneous bacterial peritonitis; J96.01 Acute respiratory failure with hypoxia; Z68.41 Body mass index [BMI] 40.0-44.9, adult; I12.0 Hypertensive chronic kidney disease with stage 5 chronic kidney disease or end stage renal disease; K56.7 Ileus, unspecified; N39.0 Urinary tract infection, site not specified; E11.22 Type 2 diabetes mellitus with diabetic chronic kidney disease; Z99.2 Dependence on renal dialysis; E66.01 Morbid (severe) obesity due to excess calories; E87.5 Hyperkalemia; Z20.822 Contact with and (suspected) exposure to COVID-19; D63.1 Anemia in chronic kidney disease; K21.9 Gastro-esophageal reflux disease without esophagitis; Z90.5 Acquired absence of kidney; D50.9 Iron deficiency anemia, unspecified; G47.33 Obstructive sleep apnea (adult) (pediatric)
CPT/HCPCS: 36415; 36556; 36558; 71045; 74018; 74160; 74177; 74470; 76937; 77001; 80048; 80053; 81001; 82150; 82550; 82553; 82607; 82746; 82948; 83540; 83605; 83690; 83735; 83970; 84132; 84466; 84478; 84484; 85025; 85045; 85610; 85730; 86039; 86704; 86706; 87040; 87070; 87086; 87186; 87205; 87340; 88300; 89051; 90962; 93005; 93041; 99152; 99153; 99284; C1752; C1769; C1892; J0330; J0690; J1170; J1580; J1644; J1756; J2001; J2150; J2250; J2270; J2370; J2405; J2543; J2765; J3010; J3370; J7030; J7040; P9045; Q9967; U0002